=== PATIENT | female | born 1955 | race Caucasian/White ===

== ENCOUNTER 2023-04-26 09:00 | Outpatient (RCR) | payer BC, MEDICARE, SELFPAY ==
[2023-04-26 09:12] VITALS: BP 140/81
[2023-04-26] MEDS: NUCALA 1 MG SC (09:23)
== END 2023-04-27 08:23 | disposition home or self-care (01) ==
LOC: OID 09:00
PROVIDERS: ATTENDING PHYSICIAN Internal Medicine Critical Care Medicine; FAMILY PHYSICIAN Family Medicine
DX: J45.41 Moderate persistent asthma with (acute) exacerbation (principal); J82.83 Eosinophilic asthma; J44.9 Chronic obstructive pulmonary disease, unspecified; R94.2 Abnormal results of pulmonary function studies
CPT/HCPCS: 96372; J2182

== ENCOUNTER 2023-05-26 09:00 | Outpatient (RCR) | payer BC, MEDICARE, SELFPAY ==
[2023-05-26 09:21] VITALS: BP 145/86
[2023-05-26] MEDS: NUCALA 1 MG SC (09:27)
== END 2023-05-27 08:46 | disposition home or self-care (01) ==
LOC: OID 09:00
PROVIDERS: ATTENDING PHYSICIAN Internal Medicine Critical Care Medicine; FAMILY PHYSICIAN Family Medicine
DX: J45.41 Moderate persistent asthma with (acute) exacerbation (principal); J82.83 Eosinophilic asthma; J44.9 Chronic obstructive pulmonary disease, unspecified; R94.2 Abnormal results of pulmonary function studies
CPT/HCPCS: 96372; J2182

== ENCOUNTER 2023-06-21 09:12 | Outpatient (RCR) | payer BC, MEDICARE, SELFPAY ==
[2023-06-21 09:33] VITALS: BP 185/62
[2023-06-21] MEDS: NUCALA 1 MG SC (09:44)
== END 2023-07-06 23:59 | disposition home or self-care (01) ==
LOC: OID 09:12
PROVIDERS: ATTENDING PHYSICIAN Internal Medicine Critical Care Medicine; FAMILY PHYSICIAN Family Medicine
DX: J82.83 Eosinophilic asthma (principal); J44.9 Chronic obstructive pulmonary disease, unspecified; R94.2 Abnormal results of pulmonary function studies
CPT/HCPCS: 96372; J2182

== ENCOUNTER 2023-07-19 07:32 | Outpatient (RCR) | payer BC, MEDICARE, SELFPAY ==
[2023-07-19 08:10] VITALS: BP 171/86
[2023-07-19] MEDS: NUCALA 1 MG SC (08:22)
== END 2023-08-06 23:59 | disposition home or self-care (01) ==
LOC: OID 07:32
PROVIDERS: ATTENDING PHYSICIAN Internal Medicine Critical Care Medicine; FAMILY PHYSICIAN Family Medicine
DX: J82.83 Eosinophilic asthma (principal); J44.9 Chronic obstructive pulmonary disease, unspecified; R94.2 Abnormal results of pulmonary function studies
CPT/HCPCS: 96372; J2182

== ENCOUNTER 2023-08-16 08:14 | Outpatient (RCR) | payer BC, MEDICARE, SELFPAY ==
[2023-08-16 08:29] VITALS: BP 156/91
[2023-08-16] MEDS: NUCALA 1 MG SC (08:37)
== END 2023-08-16 15:49 | disposition home or self-care (01) ==
LOC: OID 08:14
PROVIDERS: ATTENDING PHYSICIAN Internal Medicine Critical Care Medicine; FAMILY PHYSICIAN Family Medicine
DX: J82.83 Eosinophilic asthma (principal); J44.9 Chronic obstructive pulmonary disease, unspecified; R94.2 Abnormal results of pulmonary function studies
CPT/HCPCS: 96372; J2182

== ENCOUNTER 2023-09-13 09:13 | Outpatient (RCR) | payer BC, MEDICARE, SELFPAY ==
[2023-09-13 09:32] VITALS: BP 136/74
[2023-09-13] MEDS: NUCALA 1 MG SC (09:39)
== END 2023-09-14 11:04 | disposition home or self-care (01) ==
LOC: OID 09:13
PROVIDERS: ATTENDING PHYSICIAN Internal Medicine Critical Care Medicine; FAMILY PHYSICIAN Family Medicine
DX: J82.83 Eosinophilic asthma (principal); J44.9 Chronic obstructive pulmonary disease, unspecified; R94.2 Abnormal results of pulmonary function studies
CPT/HCPCS: 96372; J2182

== ENCOUNTER 2023-11-09 09:00 | Outpatient (RCR) | payer MEDICARE, BC, SELFPAY ==
[2023-11-09 09:41] VITALS: BP 143/88
[2023-11-09] MEDS: NUCALA 1 MG SC (09:48)
== END 2023-11-10 08:44 | disposition home or self-care (01) ==
LOC: OID 09:00
PROVIDERS: ATTENDING PHYSICIAN Internal Medicine Critical Care Medicine; FAMILY PHYSICIAN Family Medicine
DX: J82.83 Eosinophilic asthma (principal); J45.50 Severe persistent asthma, uncomplicated (principal); J44.9 Chronic obstructive pulmonary disease, unspecified; R94.2 Abnormal results of pulmonary function studies
CPT/HCPCS: 96372; J2182

== ENCOUNTER 2023-12-14 08:57 | Outpatient (RCR) | payer MEDICARE, BC, SELFPAY ==
[2023-12-14 09:22] VITALS: BP 141/83
[2023-12-14] MEDS: NUCALA 1 MG SC (09:33)
== END 2023-12-15 09:55 | disposition home or self-care (01) ==
LOC: OID 08:57
PROVIDERS: ATTENDING PHYSICIAN Internal Medicine Critical Care Medicine; FAMILY PHYSICIAN Family Medicine
DX: J82.83 Eosinophilic asthma (principal); J44.9 Chronic obstructive pulmonary disease, unspecified; R94.2 Abnormal results of pulmonary function studies
CPT/HCPCS: 96372; J2182

== ENCOUNTER 2024-01-11 09:22 | Outpatient (RCR) | payer MEDICARE, BC, SELFPAY ==
[2024-01-11 09:25] VITALS: BP 153/98
[2024-01-11] MEDS: NUCALA 1 MG SC (09:43)
== END 2024-01-11 15:24 | disposition home or self-care (01) ==
LOC: OID 09:22
PROVIDERS: ATTENDING PHYSICIAN Internal Medicine Critical Care Medicine; FAMILY PHYSICIAN Family Medicine
DX: J82.83 Eosinophilic asthma (principal); J44.9 Chronic obstructive pulmonary disease, unspecified; R94.2 Abnormal results of pulmonary function studies
CPT/HCPCS: 96372; J2182

== ENCOUNTER 2024-02-08 09:47 | Outpatient (RCR) | payer MEDICARE, BC, SELFPAY ==
[2024-02-08 09:55] VITALS: BP 130/79
[2024-02-08] MEDS: NUCALA 1 MG SC (10:20)
== END 2024-02-09 10:21 | disposition home or self-care (01) ==
LOC: OID 09:47
PROVIDERS: ATTENDING PHYSICIAN Internal Medicine Critical Care Medicine; FAMILY PHYSICIAN Family Medicine
DX: J82.83 Eosinophilic asthma (principal); J44.9 Chronic obstructive pulmonary disease, unspecified; R94.2 Abnormal results of pulmonary function studies
CPT/HCPCS: 96372; J2182

== ENCOUNTER 2024-04-06 09:01 | Outpatient (RCR) | payer MEDICARE, BC, SELFPAY ==
[2024-03-09 09:22] VITALS: BP 144/89
[2024-03-09] MEDS: NUCALA 1 MG SC (09:30)
[2024-04-06 09:15] VITALS: BP 155/92
[2024-04-06] MEDS: NUCALA 1 MG SC (09:30)
== END 2024-04-07 11:14 | disposition home or self-care (01) ==
LOC: OID 09:01
PROVIDERS: ATTENDING PHYSICIAN Internal Medicine Critical Care Medicine; FAMILY PHYSICIAN Family Medicine
DX: J45.50 Severe persistent asthma, uncomplicated (principal); J82.83 Eosinophilic asthma (principal); J44.9 Chronic obstructive pulmonary disease, unspecified; R94.2 Abnormal results of pulmonary function studies
CPT/HCPCS: 96372; J2182

== ENCOUNTER 2024-05-31 08:56 | Outpatient (RCR) | payer MEDICARE, BC, SELFPAY ==
[2024-05-31 09:12] VITALS: BP 134/87
[2024-05-31] MEDS: NUCALA 1 MG SC (09:28)
== END 2024-06-01 09:15 | disposition home or self-care (01) ==
LOC: OID 08:56
PROVIDERS: ATTENDING PHYSICIAN Internal Medicine Critical Care Medicine; FAMILY PHYSICIAN Family Medicine
DX: J82.83 Eosinophilic asthma (principal); J45.50 Severe persistent asthma, uncomplicated (principal); J44.9 Chronic obstructive pulmonary disease, unspecified; R94.2 Abnormal results of pulmonary function studies
CPT/HCPCS: 96372; J2182

== ENCOUNTER 2024-06-28 08:58 | Outpatient (RCR) | payer MEDICARE, BC, SELFPAY ==
[2024-06-28 09:27] VITALS: BP 129/91
[2024-06-28] MEDS: NUCALA 1 MG SC (09:43)
== END 2024-07-05 23:59 | disposition home or self-care (01) ==
LOC: OID 08:58
PROVIDERS: ATTENDING PHYSICIAN Internal Medicine Critical Care Medicine; FAMILY PHYSICIAN Family Medicine
DX: J82.83 Eosinophilic asthma (principal); J44.9 Chronic obstructive pulmonary disease, unspecified; R94.2 Abnormal results of pulmonary function studies
CPT/HCPCS: 96372; J2182

== ENCOUNTER 2024-09-20 09:08 | Outpatient (RCR) | payer MEDICARE, BC, SELFPAY ==
[2024-09-20 09:39] VITALS: BP 126/77
[2024-09-20] MEDS: NUCALA 1 MG SC (09:51)
== END 2024-09-21 08:47 | disposition home or self-care (01) ==
LOC: OID 09:08
PROVIDERS: ATTENDING PHYSICIAN Internal Medicine Critical Care Medicine; FAMILY PHYSICIAN Family Medicine
DX: J82.83 Eosinophilic asthma (principal); J45.50 Severe persistent asthma, uncomplicated (principal); J44.9 Chronic obstructive pulmonary disease, unspecified; R94.2 Abnormal results of pulmonary function studies
CPT/HCPCS: 96372; J2182

== ENCOUNTER 2024-10-19 08:59 | Outpatient (RCR) | payer MEDICARE, BC, SELFPAY ==
[2024-10-19] MEDS: NUCALA 1 MG SC (09:49)
[2024-10-19 09:55] VITALS: BP 113/84
== END 2024-10-20 07:56 | disposition home or self-care (01) ==
LOC: OID 08:59
PROVIDERS: ATTENDING PHYSICIAN Internal Medicine Critical Care Medicine; FAMILY PHYSICIAN Family Medicine
DX: J45.50 Severe persistent asthma, uncomplicated (principal); J82.83 Eosinophilic asthma; J44.9 Chronic obstructive pulmonary disease, unspecified; R94.2 Abnormal results of pulmonary function studies
CPT/HCPCS: 96372; J2182

== ENCOUNTER 2024-11-16 08:56 | Outpatient (RCR) | payer MEDICARE, BC, SELFPAY ==
[2024-11-16 09:30] VITALS: BP 130/81
[2024-11-16] MEDS: NUCALA 1 MG SC (10:02)
== END 2024-11-16 15:07 | disposition home or self-care (01) ==
LOC: OID 08:56
PROVIDERS: ATTENDING PHYSICIAN Internal Medicine Critical Care Medicine; FAMILY PHYSICIAN Family Medicine
DX: J45.50 Severe persistent asthma, uncomplicated (principal); J82.83 Eosinophilic asthma; J44.9 Chronic obstructive pulmonary disease, unspecified; R94.2 Abnormal results of pulmonary function studies
CPT/HCPCS: 96372; J2182

== ENCOUNTER 2024-12-14 09:02 | Outpatient (RCR) | payer MEDICARE, BC, SELFPAY ==
[2024-12-14 09:10] VITALS: BP 114/71
[2024-12-14] MEDS: NUCALA 1 MG SC (09:19)
== END 2024-12-15 08:45 | disposition home or self-care (01) ==
LOC: OID 09:02
PROVIDERS: ATTENDING PHYSICIAN Internal Medicine Critical Care Medicine; FAMILY PHYSICIAN Family Medicine
DX: J45.50 Severe persistent asthma, uncomplicated (principal); J82.83 Eosinophilic asthma; J44.9 Chronic obstructive pulmonary disease, unspecified; R94.2 Abnormal results of pulmonary function studies
CPT/HCPCS: 96372; J2182

== ENCOUNTER 2025-01-11 08:58 | Outpatient (RCR) | payer MEDICARE, BC, SELFPAY ==
[2025-01-11 09:18] VITALS: BP 119/75
[2025-01-11] MEDS: NUCALA 1 MG SC (09:29)
== END 2025-01-12 08:51 | disposition home or self-care (01) ==
LOC: OID 08:58
PROVIDERS: ATTENDING PHYSICIAN Internal Medicine Critical Care Medicine; FAMILY PHYSICIAN Family Medicine
DX: J82.83 Eosinophilic asthma (principal); J44.9 Chronic obstructive pulmonary disease, unspecified; R94.2 Abnormal results of pulmonary function studies
CPT/HCPCS: 96372; J2182

== ENCOUNTER 2025-02-08 09:00 | Outpatient (RCR) | payer MEDICARE, BC, SELFPAY ==
[2025-02-08 09:18] VITALS: BP 113/76
[2025-02-08] MEDS: NUCALA 1 MG SC (09:34)
== END 2025-02-09 09:59 | disposition home or self-care (01) ==
LOC: OID 09:00
PROVIDERS: ATTENDING PHYSICIAN Internal Medicine Critical Care Medicine; FAMILY PHYSICIAN Family Medicine
DX: J45.50 Severe persistent asthma, uncomplicated (principal); J82.83 Eosinophilic asthma; J44.9 Chronic obstructive pulmonary disease, unspecified; R94.2 Abnormal results of pulmonary function studies
CPT/HCPCS: 96372; J2182